=== PATIENT | female | born 1960 | race African-American/Black ===

== ENCOUNTER 2017-10-02 14:55 | Emergency (ER) | payer MEDICARE, MEDICAID ==
[~2017-10-02] VITALS: Ht 157.5 cm; Wt 77.1 kg
[~2017-10-02 14:55] MED LIST: ALBUTEROL2.5 MG/3 M INH
[2017-10-02] MEDS ORDERED: KEPPRA500 M4 ORAL (14:58)
[2017-10-02] MEDS ORDERED: ATIVAN0.5 MG ORAL (14:58)
[2017-10-02] MEDS ORDERED: VICODIN HP 10-1 EACH ORAL (14:58)
[2017-10-02] MEDS ORDERED: OXYCODONE HCL5 M2 ORAL (14:58)
[2017-10-02 18:00] VITALS: BP 113/73
--- NOTE | 2017-10-02 20:39 | Emergency Room Report ---
History of Present Illness General Chief Complaint: Pain Source: Patient, Medical Record Present Illness HPI The patient is a 57-year-old female presenting for left arm pain. She is brought in by EMS from the streets. She denies any injury to the arm. Pain is a 10 of 10 dull ache no known provoking or relieving factors. She denies any other symptoms including nausea, vomiting, fever, chills, chest pain, shortness of breath Allergies: Coded Allergies: No Known Allergies (Unverified , 10/02/17) Patient History Past Medical History: see triage record Pertinent Family History: none Reviewed Nursing Documentation: PMH: Agreed, PSxH: Agreed Nursing Documentation-PMH Past Medical History: No History, Except For Hx Hypertension: Yes Hx Asthma: Yes Hx Diabetes: Yes History Of Psychiatric Problem: Yes Review of Systems All Other Systems: negative except mentioned in HPI Physical Exam Vital Signs Date Time Temp Pulse Resp B/P (MAP) Pulse Ox O2 Delivery O2 Flow Rate FiO2 10/02/17 14:50 98.8 94 18 100/74 98 Room Air Sp02 EP Interpretation: reviewed, normal General Appearance: no apparent distress, alert, GCS 15, non-toxic Head: normocephalic, atraumatic Eyes: bilateral eye normal inspection, bilateral eye PERRL ENT: hearing grossly normal, normal pharynx, no angioedema, normal voice Neck: full range of motion, supple/symm/no masses Respiratory: chest non-tender, lungs clear, normal breath sounds, speaking full sentences Cardiovascular #1: regular rate, rhythm, no edema Cardiovascular #2: 2+ radial (R), 2+ radial (L) Musculoskeletal: normal inspection, back normal, digits/nails normal, gait/ station normal, normal range of motion, non-tender Neurologic: alert, oriented x3, responsive, motor strength/tone normal, sensory intact, speech normal Psychiatric: judgement/insight normal, memory normal, mood/affect normal, no suicidal/homicidal ideation Skin: normal color, no rash, warm/dry, well hydrated Lymphatic: no adenopathy Medical Decision Making PA Attestation Dr. Tao is my supervising physician. Patient management was discussed with my supervising physician Diagnostic Impression: Primary Impression: Arm pain Qualified Codes: M79.602 - Pain in left arm ER Course The patient is a 57-year-old female presenting for left arm pain. Ddx considered include but not limited to sprain/strain, fracture, contusion PE: NAD The patient continues to fall asleep during exam and becomes frustrated and angry when I try to wake her. Left arm has full active range of motion. Nontender. No deformity. The patient continues to follow sleep and asks for us to turn the lights off so she can rest. The patient is discharged home he needs to followup with primary doctor. ER precautions given Last Vital Signs Date Time Temp Pulse Resp B/P (MAP) Pulse Ox O2 Delivery O2 Flow Rate FiO2 10/02/17 18:00 98.8 130 14 113/73 98 Room Air Status: improved Disposition: HOME, SELF-CARE Condition: Improved Additional Instructions: I discussed my findings with the patient. All questions and concerns have been answered. Treatment and medication compliance have been addressed. I advised the patient that they need to follow up with PMD in 3-5 days. Return to ED if symptoms worsen, new symptoms arise, or if needed for any reason. Patient verbalized understanding of discharge instructions. GURJIT GUEVARA Oct 02, 2017 20:39
== END 2017-10-02 18:20 | disposition home or self-care (01) ==
LOC: EDBD 14:55 → EMR 15:50
DX: M79.602 Pain in left arm (principal); I10 Essential (primary) hypertension; E11.9 Type 2 diabetes mellitus without complications
CPT/HCPCS: 99282

== ENCOUNTER 2017-10-03 06:28 | Emergency (ER) | payer MEDICARE, MEDICAID ==
[~2017-10-03] VITALS: Ht 157.5 cm; Wt 72.6 kg
[~2017-10-03 06:28] MED LIST changes: +ATIVAN0.5 MG ORAL; +KEPPRA500 M4 ORAL; +OXYCODONE HCL5 M2 ORAL; +VICODIN HP 10-1 EACH ORAL
[2017-10-03 06:42] VITALS: BP 137/80
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
[2017-10-03 07:36] LABS: BASOPHILS % (AUTO) 1.6 % (0.0-2.0); EOSINOPHILS % (AUTO) 0.7 % (0.0-3.0); HEMATOCRIT 37.6 % (37.0-47.0); HEMOGLOBIN 13.2 G/DL (12.0-16.0); LYMPHOCYTES % (AUTO) 30.6 % (20.0-45.0); MEAN CORPUSCULAR VOLUME 99 FL (80-99); MONOCYTES % (AUTO) 9.2 % (1.0-10.0); NEUTROPHILS % (AUTO) 57.8 % (45.0-75.0); PLATELET COUNT 145 K/UL (150-450); RED CELL DISTRIBUTION WIDTH 15.2 % (11.6-14.8); WHITE BLOOD COUNT 7.7 K/UL (4.8-10.8)
[2017-10-03 09:49] LABS: ALANINE AMINOTRANSFERASE 33 U/L (12-78); ALBUMIN 3.4 G/DL (3.4-5.0); ALBUMIN/GLOBULIN RATIO 0.8 (1.0-2.7); ALKALINE PHOSPHATASE 79 U/L (46-116); ANION GAP 11 mmol/L (5-15); ASPARTATE AMINO TRANSFERASE 73 U/L (15-37); BLOOD UREA NITROGEN 15 mg/dL (7-18); CALCIUM 8.3 MG/DL (8.5-10.1); CARBON DIOXIDE 28 MMOL/L (21-32); CHLORIDE 105 MMOL/L (98-107); CREATININE 0.5 MG/DL (0.55-1.30); POTASSIUM 5.2 MMOL/L (3.5-5.1); SODIUM 144 MMOL/L (136-145)
[2017-10-03 09:53] LABS: BILIRUBIN,TOTAL 0.3 MG/DL (0.2-1.0)
[2017-10-03 11:43] LABS: CREATINE KINASE 114 U/L (26-308)
[2017-10-03 12:43] LABS: APPEARANCE,URINE CLEAR; BILIRUBIN, URINE NEGATIVE (NEGATIVE); COLOR,URINE PALE YELLOW; GLUCOSE, URINE (UA) NEGATIVE (NEGATIVE); KETONES,URINE NEGATIVE (NEGATIVE); LEUKOCYTE ESTERASE ,URINE NEGATIVE (NEGATIVE); NITRITE,URINE NEGATIVE (NEGATIVE); PH,URINE 5 (4.5-8.0); PROTEIN,URINE NEGATIVE (NEGATIVE); UROBILINOGEN,URINE NORMAL MG/DL (0.0-1.0)
[2017-10-03] MEDS ORDERED: Sodium Polystyrene Sulfonate 15gm Powder ORAL ONE (12:45)
[2017-10-03 14:44] VITALS: BP 135/86
--- NOTE | 2017-10-11 15:58 | Cardiology Report ---
APPROVED REPORT EKG Measurement Heart [id number] 126P58 [id number] Sinus tachycardia Otherwise normal ECG
--- NOTE | 2017-10-11 15:58 | Cardiology Report ---
APPROVED REPORT EKG Measurement Heart [id number] 126P58 [id number] Sinus tachycardia Otherwise normal ECG
--- NOTE | 2017-10-11 15:58 | Cardiology Report ---
APPROVED REPORT EKG Measurement Heart [id number] [place] 126P58 [id number] Sinus tachycardia Otherwise normal ECG
== END 2017-10-03 14:49 | disposition home or self-care (01) ==
LOC: EMR 06:51
DX: F10.129 Alcohol abuse with intoxication, unspecified (principal); M79.601 Pain in right arm; W19.XXXA Unspecified fall, initial encounter; Y93.9 Activity, unspecified; Y99.9 Unspecified external cause status; I10 Essential (primary) hypertension; E11.9 Type 2 diabetes mellitus without complications; J45.909 Unspecified asthma, uncomplicated
CPT/HCPCS: 36415; 80053; 80307; 81003; 82550; 84484; 85025; 93005; 96374; 99284; G0480; 80329